=== PATIENT | female | born 1990 | race American Indian/Alaskan Native ===

== ENCOUNTER 2020-02-20 03:05 | Emergency (ER) | payer SELFPAY ==
[2020-02-20 04:24] LABS: Blood Urea Nitrogen 12 mg/dL (7-17); Calcium 8.8 mg/dL (8.4-10.2); Hemolysis Index 28
[2020-02-20 04:38] LABS: BUN/Creatinine Ratio 17
[2020-02-20 04:52] LABS: Basophils % (Auto) 0.2 % (0.0-1.8); Hematocrit 39.3 % (30.3-42.9); Hemoglobin 13.3 gm/dl (10.1-14.3); Lymphocytes # (Auto) 1.9 K/mm3 (1.2-5.4); Lymphocytes % (Auto) 18.4 % (13.4-35.0); Mean Corpuscular HGB Conc 34 % (30-34); Mean Corpuscular Volume 92 fl (79-97); Monocytes # (Auto) 0.8 K/mm3 (0.0-0.8); Platelet Count 233 K/mm3 (140-440); Red Blood Count 4.28 M/mm3 (3.65-5.03); Red Cell Distribution Width 13.1 % (13.2-15.2)
[2020-02-20] MEDS ORDERED: KETOROLAC 30 MG/1 ML INJ IV ONE (05:47)
[2020-02-20] MEDS ORDERED: SODIUM CHLORIDE 0.9% 1000 ML 1,000 ML IV ONE (05:47)
--- NOTE | 2020-02-20 05:58 | Emergency Department Report ---
ED General Adult HPI - General Chief complaint: Dental/Oral Stated complaint: SWOLLEN TONSIL,ABCESS,HIGH GLUCOSE Source: patient Mode of arrival: Stretcher Limitations: No Limitations - History of Present Illness Initial comments: Patient is a 29-year-old female who presents for recurrent tonsillitis. last CT neck for evaluation 2 days ago. and will follow-up with ENT. Pt is requesting for referral to different ENT as she does not trust the current one. There are no new problems or concerns. pain today is 06/26/ there is no whee to o - Related Data Previous Rx's Medication Instructions Recorded Last Taken Type Clindamycin [Clindamycin CAP] 300 mg PO Q6H 10 Days #40 capsule 02/20/20 Unknown Rx Ibuprofen [Motrin 800 MG tab] 800 mg PO Q8HR PRN #30 tablet 02/20/20 Unknown Rx dexAMETHasone [Decadron] 4 mg PO BID 3 Days #6 tablet 02/20/20 Unknown Rx Allergies Allergy/AdvReac Type Severity Reaction Status Date / Time No Known Allergies Allergy Unverified 02/20/20 03:45 ED Review of Systems ROS: Stated complaint: SWOLLEN TONSIL,ABCESS,HIGH GLUCOSE Other details as noted in HPI Constitutional: denies: chills, fever Eyes: denies: eye pain, eye discharge, vision change ENT: dental pain. denies: ear pain, throat pain, hearing loss, congestion Respiratory: denies: cough, shortness of breath, wheezing Cardiovascular: denies: chest pain, palpitations Endocrine: no symptoms reported Gastrointestinal: denies: abdominal pain, nausea, diarrhea Genitourinary: denies: urgency, dysuria, discharge Musculoskeletal: denies: back pain, joint swelling, arthralgia Skin: denies: rash, lesions Neurological: as per HPI. denies: headache, weakness, numbness, paresthesias, confusion, vertigo Psychiatric: denies: anxiety, depression Hematological/Lymphatic: denies: easy bleeding, easy bruising ED Past Medical Hx - Past Medical History Previous Medical History?: Yes Hx Diabetes: Yes - Surgical History Past Surgical History?: No - Social History Smoking Status: Never Smoker Substance Use Type: None - Medications Home Medications: Home Medications Medication Instructions Recorded Confirmed Last Taken Type Clindamycin [Clindamycin CAP] 300 mg PO Q6H 10 Days #40 capsule 02/20/20 Unknown Rx Ibuprofen [Motrin 800 MG tab] 800 mg PO Q8HR PRN #30 tablet 02/20/20 Unknown Rx dexAMETHasone [Decadron] 4 mg PO BID 3 Days #6 tablet 02/20/20 Unknown Rx ED Physical Exam - General Limitations: No Limitations General appearance: alert, in no apparent distress - Head Head exam: Present: atraumatic, normocephalic - Eye Eye exam: Present: normal appearance, PERRL, EOMI - ENT ENT exam: Present: mucous membranes moist, TM's normal bilaterally, normal external ear exam - Expanded ENT Exam Expanded Ear exam: Present: normal external inspection Mouth exam: Present: normal external inspection, tongue normal, tongue elevation. Absent: trismus Throat exam: Positive: tonsillar erythema, tonsillomegaly, tonsillar exudate. Negative: R peritonsillar mass, L peritonsillar mass - Neck Neck exam: Present: normal inspection, tenderness, full ROM, lymphadenopathy - Respiratory Respiratory exam: Present: normal lung sounds bilaterally. Absent: respiratory distress, wheezes, stridor, chest wall tenderness - Cardiovascular Cardiovascular Exam: Present: regular rate, normal rhythm. Absent: systolic murmur, diastolic murmur, rubs, gallop - GI/Abdominal GI/Abdominal exam: Present: soft, distended, rebound. Absent: pulsatile mass, hernia - Rectal Rectal exam: Present: deferred - Extremities Exam Extremities exam: Present: normal inspection - Back Exam Back exam: Present: normal inspection, full ROM, paraspinal tenderness. Absent: tenderness, CVA tenderness (R), CVA tenderness (L) - Neurological Exam Neurological exam: Present: alert, oriented X3, CN II-XII intact, normal gait, reflexes normal - Psychiatric Psychiatric exam: Present: normal affect, normal mood - Skin Skin exam: Present: warm, dry, intact, normal color. Absent: rash ED Course Vital Signs 02/20/20 03:21 Temperature 98.1 F Pulse Rate 97 H Respiratory 18 Rate Blood Pressure 153/92 O2 Sat by Pulse 98 Oximetry ED Medical Decision Making - Lab Data Result diagrams: 02/20/20 03:50 02/20/20 03:50 - Medical Decision Making Patient diagnosed with chronic tonsillitis was admitted at [facility] for same ENT consult with Dr. Vasquez, patient states she want second opinion from different ENT, states symptoms for the past 1-1/2 months, states treatment was with Augmentin and prednisone at [facility] [place]. Plan: continue met formin as prescribed, Change antibiotic to clindamycin , first dose of IV piggyback in ED today, Ronda , refer to Dr. POWELL ENT, Critical care attestation.: If time is entered above; I have spent that time in minutes in the direct care of this critically ill patient, excluding procedure time. ED Disposition Clinical Impression: Pharyngitis Qualifiers: Pharyngitis/tonsillitis etiology: unspecified etiology Qualified Code(s): J02.9 - Acute pharyngitis, unspecified Disposition: TO HOME OR SELFCARE Is pt being admited?: No Does the pt Need Aspirin: No Condition: Stable Instructions: Pharyngitis Prescriptions: Clindamycin [Clindamycin CAP] 300 mg PO Q6H 10 Days #40 capsule dexAMETHasone [Decadron] 4 mg PO BID 3 Days #6 tablet Ibuprofen [Motrin 800 MG tab] 800 mg PO Q8HR PRN #30 tablet PRN Reason: pain Referrals: ASHWINI POWELL MD [Staff Physician] - 3-5 Days Forms: Work/School Release Form(ED) Time of Disposition: 07:21
[2020-02-20] MEDS ORDERED: INSULIN REGULAR, HUMAN 100 UNIT/ML 3ML VIAL IV ONE (06:04)
[2020-02-20] MEDS ORDERED: dexAMETHasone 20 MG/5 ML VIAL IV ONE (06:04)
[2020-02-20] MEDS ORDERED: INSULIN REGULAR, HUMAN 100 UNITS/1 ML ONE (08:00)
[2020-02-20 08:34] VITALS: BP 138/80
== END 2020-02-20 09:00 | disposition home or self-care (01) ==
LOC: ED 03:05
DX: J02.9 Acute pharyngitis, unspecified (principal); E11.65 Type 2 diabetes mellitus with hyperglycemia; Z79.899 Other long term (current) drug therapy
CPT/HCPCS: 36415; 80048; 82962; 84703; 85025; 96365; 96375; 99284; J1885; J7030; J1815

== ENCOUNTER 2020-12-02 00:33 | Emergency (ER) | payer SELFPAY ==
--- NOTE | 2020-12-02 01:15 | Event Note ---
ED Screening Note Date of service: 12/02/20 Time: 01:12 ED Screening Note: 30-year-old female patient with history of diabetes presents to the emergency department with complaints of right-sided chest pain, cough, and shortness of breath starting 2 days ago. Prior to the onset of her symptoms, she was evaluated at another emergency department for headache and nausea. She was diagnosed with urinary tract infection and started on Ciprofloxacin. Current symptoms began immediately after she was discharged home from the emergency department. Chest pain is exacerbated with coughing and deep inhalation. Chest pain is relieved with lying in the right lateral decubitus position. Patient tested negative for COVID-19 just prior to the onset of her symptoms. Patient does not use insulin. Tachycardic in triage. General: Awake, appropriately interactive. Appears uncomfortable. Neck: Supple. Full range of motion intact. Cardiovascular: Tachycardic. Normal peripheral perfusion. Pulmonary: No respiratory distress. Patient is speaking normally without use of accessory muscles. Skin: No apparent rashes or lesions. Neurological: No facial asymmetry. Speech is clear. Follows commands. Patient is alert and oriented. Musculoskeletal: Moves all four extremities spontaneously with normal range of motion. Psych: Cooperative. Appropriate mood and affect. EKG, labs, chest x-ray ordered. bus monitor, continuous pulse oximetry, peripheral IV access requested. Triage nurse aware. Decision to pursue PE work-up deferred to additional ED providers following further history and complete physical exam. I have greeted and performed a focused rapid initial assessment of this patient. A comprehensive ED assessment and evaluation of the patient, analysis of all test results, and completion of the medical decision-making process will be conducted by additional ED providers. This initial assessment/diagnostic orders/clinical plan/treatment(s) is/are subject to change based on patients health status, clinical progression and re-assessment. Further treatment and workup at subsequent clinical provider's discretion. Patient/guardian urged not to elope from the ED as their condition may be serious if not clinically assessed and managed.
--- NOTE | 2020-12-02 01:42 | Emergency Department Report ---
ED Chest Pain HPI - General Chief Complaint: Chest Pain Stated Complaint: KATHERYN PUI?: No Time Seen by Provider: 12/02/20 01:38 Source: patient Mode of arrival: Ambulatory Limitations: No Limitations - History of Present Illness Initial Comments: Patient is a 30-year-old female who presents emergency room with complaint of cough, shortness of breath, right-sided chest pain. Patient states her symptoms are severe. Patient states her symptoms are worsening. Patient states that her shortness of breath is better with rest and worse with movement and exertion. Patient states that her chest pain is better with rest and palpation. Patient denies fever and chills. Patient states he has not been tested just prior to her symptoms starting and her COVID-19 test was negative. Patient denies recent travel. Patient denies recent international travel. Patient denies exposure to the novel coronavirus. Patient denies sick contacts. Patient denies fever and chills. Patient denies loss of smell.. Patient denies diarrhea. Patient denies coming in contact with anybody with symptoms of the novel coronavirus. MD Complaint: chest pain -: Sudden, days(s) Onset: during rest Pain Location: right chest Severity: severe Severity scale (0 -10): 10 Quality: sharp Consistency: constant Improves With: rest Worsens With: palpation, movement re: dyspnea. denies: nausea, vomting, diaphoresis, sense of impending doom Other Symptoms: cough. denies: fever, syncope, rash, acid taste in mouth, leg swelling, palpitations, burping Treatments Prior to Arrival: none Aspirin use within the Past 7 Days: (0) No - Related Data On Oral Contraceptives: No Previous Rx's Medication Instructions Recorded Last Taken Type Clindamycin [Clindamycin CAP] 300 mg PO Q6H 10 Days #40 capsule 02/20/20 Unknown Rx Ibuprofen [Motrin 800 MG tab] 800 mg PO Q8HR PRN #30 tablet 02/20/20 Unknown Rx dexAMETHasone [Decadron] 4 mg PO BID 3 Days #6 tablet 02/20/20 Unknown Rx oxyCODONE /ACETAMINOPHEN [Percocet 1 tab PO Q4HR PRN #20 tab 12/02/20 Unknown Rx 5/325] Allergies Allergy/AdvReac Type Severity Reaction Status Date / Time No Known Allergies Allergy Unverified 02/20/20 03:45 Heart Score - HEART Score History: Slightly suspicious EKG: Normal Age: < 45 Risk factors: 1-2 risk factors Troponin: < normal limit HEART Score: 1 - EKG Read Time Time EKG Completed: : EKG Read Time: 01:26 ED Review of Systems ROS: Stated complaint: KATHERYN Other details as noted in HPI Constitutional: denies: chills, fever Eyes: denies: eye pain, eye discharge, vision change ENT: denies: ear pain, throat pain Respiratory: see HPI, cough, shortness of breath. denies: wheezing Cardiovascular: chest pain. denies: palpitations Endocrine: no symptoms reported Gastrointestinal: denies: abdominal pain, nausea, diarrhea Genitourinary: denies: urgency, dysuria, discharge Musculoskeletal: denies: back pain, joint swelling, arthralgia Skin: denies: rash, lesions Neurological: denies: headache, weakness, paresthesias Psychiatric: denies: anxiety, depression Hematological/Lymphatic: denies: easy bleeding, easy bruising ED Past Medical Hx - Past Medical History Previous Medical History?: Yes Hx Diabetes: Yes - Surgical History Past Surgical History?: No - Family History Family history: no significant - Social History Smoking Status: Never Smoker Substance Use Type: None - Medications Home Medications: Home Medications Medication Instructions Recorded Confirmed Last Taken Type Clindamycin [Clindamycin CAP] 300 mg PO Q6H 10 Days #40 capsule 02/20/20 Unknown Rx Ibuprofen [Motrin 800 MG tab] 800 mg PO Q8HR PRN #30 tablet 02/20/20 Unknown Rx dexAMETHasone [Decadron] 4 mg PO BID 3 Days #6 tablet 02/20/20 Unknown Rx oxyCODONE /ACETAMINOPHEN [Percocet 1 tab PO Q4HR PRN #20 tab 12/02/20 Unknown Rx 5/325] ED Physical Exam - General Limitations: No Limitations General appearance: alert, in no apparent distress - Head Head exam: Present: atraumatic, normocephalic - Eye Eye exam: Present: normal appearance - ENT ENT exam: Present: mucous membranes moist - Neck Neck exam: Present: normal inspection - Respiratory Respiratory exam: Present: normal lung sounds bilaterally, chest wall tenderness. Absent: respiratory distress, wheezes, rales - Cardiovascular Cardiovascular Exam: Present: regular rate, normal rhythm. Absent: systolic mur mur, diastolic murmur, rubs, gallop - GI/Abdominal GI/Abdominal exam: Present: soft, normal bowel sounds - Extremities Exam Extremities exam: Present: normal inspection - Back Exam Back exam: Present: normal inspection - Neurological Exam Neurological exam: Present: alert, oriented X3 - Psychiatric Psychiatric exam: Present: normal affect, normal mood - Skin Skin exam: Present: warm, dry, intact, normal color. Absent: rash ED Course Vital Signs 12/02/20 12/02/20 12/02/20 00:44 02:11 02:16 Temperature 99.7 F H Pulse Rate 119 H 112 H 114 H Respiratory 18 14 27 H Rate Blood Pressure 124/78 O2 Sat by Pulse 100 100 100 Oximetry 12/02/20 12/02/20 12/02/20 02:30 02:46 03:00 Temperature Pulse Rate 110 H 113 H 118 H Respiratory 15 16 15 Rate Blood Pressure 131/85 131/85 131/85 O2 Sat by Pulse 100 98 100 Oximetry 12/02/20 12/02/20 12/02/20 03:16 03:30 03:46 Temperature Pulse Rate 112 H 109 H 118 H Respiratory 21 25 H 24 Rate Blood Pressure 131/85 148/100 131/85 O2 Sat by Pulse 99 100 99 Oximetry 12/02/20 12/02/20 12/02/20 04:00 04:16 04:30 Temperature Pulse Rate 119 H 119 H 115 H Respiratory 41 H 34 H 29 H Rate Blood Pressure 134/81 134/81 135/78 O2 Sat by Pulse 99 100 100 Oximetry 12/02/20 12/02/20 05:04 05:16 Temperature Pulse Rate 112 H 110 H Respiratory 20 16 Rate Blood Pressure 119/78 O2 Sat by Pulse 100 100 Oximetry - Reevaluation(s) Reevaluation #1: Patient states her pain is better. 12/02/20 04:00 Reevaluation #2: Patient states she is feeling better. Patient states that her pain has improved. I discussed all results and clinical findings with patient. I discussed plan of care with patient. Patient agrees with plan of care. Patient is stable for discharge. Patient will be discharged home. Patient given discharge instructions. Patient voiced understanding of discharge instructions. 12/02/20 05:41 MAC score - Mac Score Age > 65: (0) No Aspirin use within the Past 7 Days: (0) No 3 or more CAD Risk Factors: (0) No 2 or more Angina events in past 24 hrs: (0) No Known CAD with more than 50% Stenosis: (0) No Elevated Cardiac Markers: (0) No ST Deviation Greater than 0.5mm: (0) No MAC Score: 0 ED Medical Decision Making - Lab Data Result diagrams: 12/02/20 01:50 12/02/20 01:50 - EKG Data -: EKG Interpreted by Sc EKG shows normal: sinus rhythm, axis, intervals, QRS complexes, ST-T waves Rate: tachycardia - Radiology Data Radiology results: report reviewed, image reviewed CHEST 2 VIEWS INDICATION / CLINICAL INFORMATION: chest pain. COMPARISON: None available. FINDINGS: SUPPORT DEVICES: None. HEART / MEDIASTINUM: No significant abnormality. LUNGS / PLEURA: No significant pulmonary or pleural abnormality. No pneumothorax. ADDITIONAL FINDINGS: No significant additional findings. IMPRESSION: 1. No acute findings. CTA CHEST WITH CONTRAST INDICATION / CLINICAL INFORMATION: Chest pain with S.O.B., Tachycardia, elevated D-dimer. TECHNIQUE: Axial CT images were obtained through the chest after injection of IV contrast. 3 plane MIP and/or 3D reconstructions were produced. All CT scans at this location are performed using CT dose reduction for ALARA by means of automated exposure control. COMPARISON: None available. FINDINGS: Contrast bolus timing is suboptimal with more contrast in the aorta and heart. The central pulmonary arteries are patent and visualized peripheral pulmonary arteries are patent. No definite PTE is seen. There is a rounded nodular density within the right lung measures 4.5 cm. There is questionable fat within the lesion. Additional nodular lesion within the right lower lung with possible small amount of gas within the lesion measuring 1.2 cm additional smaller nodule measuring 5 mm. No pleural effusion is seen. Mild increased interstitial prominence within the lungs. There is a large mass within the right kidney measuring 5.9 x 4.6 cm. The mass appears aggressive. Small nodule left lower lung. IMPRESSION: 1. No central PTE is definitely seen. Visualized pulmonary arteries appear patent however contrast bolus timing is suboptimal 2. Multiple pulmonary nodules within the lungs. Largest nodule measures 4.5 cm however there may be some central airways are patent. Findings still concerning for metastatic disease given right renal lesion. PET/CT examination may be helpful for further evaluation 3. Large mass within the right kidney measures 5.9 x 4.6 cm concerning for renal cell carcinoma. - Medical Decision Making Patient is a 30-year-old female who presents emergency room with shortness of breath, cough and chest pain. Patient's chest pain is reproducible on exam. Patient had a chest x-ray which was negative for acute findings. Patient had labs done which were essentially unremarkable except for hyperglycemia. Patient's hyperglycemia is treated with insulin, fluids. Patient was given Toradol for the chest pain and responded well. Patient had a D-dimer which was elevated and the patient had a follow-up CTA of the chest. Patient CT of the chest shows no PE but shows multiple lung nodules and a renal cell mass consistent with renal cell carcinoma. Patient's blood sugar was rechecked and it was 230. Patient's blood sugars were acceptable to be discharged. Patient responded well to treatment. Patient did not require any further emergency medical services. Patient does not require inpatient services. Patient stable for discharge. Patient discharged home. I discussed all results and clinical findings with patient. I discussed plan of care with patient. Patient agrees with plan of care. Patient is stable for discharge. Patient will be discharged home. Patient given discharge instructions. Patient voiced understanding of discharge instructions. - Differential Diagnosis Chest pain, PE, bronchitis, pneumonitis, pleurisy, shortness of breath, cou Critical care attestation.: If time is entered above; I have spent that time in minutes in the direct care of this critically ill patient, excluding procedure time. ED Disposition Clinical Impression: Right-sided chest pain, Cough, SOB (shortness of breath), Renal mass, Lung mass, Hyperglycemia Chest pain Qualifiers: Chest pain type: unspecified Qualified Code(s): R07.9 - Chest pain, unspecified Disposition: 01 HOME / SELF CARE / HOMELESS Is pt being admited?: No Does the pt Need Aspirin: No Condition: Stable Instructions: Nonspecific Chest Pain, Adult, Chest Wall Pain, [id number], Cough, Adult, Shortness of Breath, Adult, [id number], Renal Mass Additional Instructions: Patient to follow-up with primary care in 2 to 3 days. Patient to follow-up with grey roll man, certified bench jeweler technician, urologist in 2 to 3 days. Patient to rest. Patient to increase water. Patient to take Tylenol or ibuprofen as needed for pain. Patient to take meds as directed. Patient to return to the ER if condition worsens, changes or new symptoms arise. Prescriptions: oxyCODONE /ACETAMINOPHEN [Percocet 5/325] 1 tab PO Q4HR PRN #20 tab PRN Reason: Pain , Severe (7-10) Referrals: ELIZABETH MOSELEY MD [Primary Care Provider] - 2-3 Days JAGDEEP TELLEZ MD [Referring] - 2-3 Days EL MORRELL MD [Staff Physician] - 2-3 Days MARVIN BURROUGHS MD [Staff Physician] - 2-3 Days BRENDON STRANGE MD [Staff Physician] - 2-3 Days Time of Disposition: 06:07
[2020-12-02 02:19] LABS: Basophils % (Auto) 0.4 % (0.0-1.8); Eosinophils % (Auto) 0.3 % (0.0-4.3); Hematocrit 30.5 % (30.3-42.9); Hemoglobin 10.4 gm/dl (10.1-14.3); Lymphocytes # (Auto) 0.8 K/mm3 (1.2-5.4); Lymphocytes % (Auto) 7.2 % (13.4-35.0); Mean Corpuscular HGB Conc 34 % (30-34); Mean Corpuscular Volume 88 fl (79-97); Monocytes # (Auto) 1.4 K/mm3 (0.0-0.8); Monocytes % (Auto) 12.4 % (0.0-7.3); Platelet Count 273 K/mm3 (140-440); Red Blood Count 3.48 M/mm3 (3.65-5.03); Red Cell Distribution Width 13.5 % (13.2-15.2)
[2020-12-02 02:34] LABS: Alanine Aminotransferase 67 units/L (7-56); Albumin 2.7 g/dL (3.9-5); BUN/Creatinine Ratio 10; Blood Urea Nitrogen 8 mg/dL (7-17); Calcium 9.6 mg/dL (8.4-10.2); Hemolysis Index 0
--- NOTE | 2020-12-02 02:53 | XRay Report ---
CHEST 2 VIEWS INDICATION / CLINICAL INFORMATION: chest pain. COMPARISON: None available. FINDINGS: SUPPORT DEVICES: None. HEART / MEDIASTINUM: No significant abnormality. LUNGS / PLEURA: No significant pulmonary or pleural abnormality. No pneumothorax. ADDITIONAL FINDINGS: No significant additional findings. IMPRESSION: 1. No acute findings. Signer Name: Rey Garcia MD Signed: 12/02/2020 2:49 AM Workstation Name: [id number]
[2020-12-02] MEDS ORDERED: KETOROLAC 30 MG/1 ML INJ IV ONE (03:28)
[2020-12-02] MEDS ORDERED: INSULIN REGULAR, HUMAN 100 UNITS/1 ML IV ONE (03:28)
[2020-12-02] MEDS ORDERED: SODIUM CHLORIDE 0.9% 1000 ML 1,000 ML IV ONE (03:28)
--- NOTE | 2020-12-02 05:23 | Cat Scan Report ---
CTA CHEST WITH CONTRAST INDICATION / CLINICAL INFORMATION: Chest pain with S.O.B., Tachycardia, elevated D-dimer. TECHNIQUE: Axial CT images were obtained through the chest after injection of IV contrast. 3 plane [place] P and/or 3D reconstructions were produced. All CT scans at this location are performed using CT dose reduction for ALARA by means of automated exposure control. COMPARISON: None available. FINDINGS: Contrast bolus timing is suboptimal with more contrast in the aorta and heart. The central pulmonary arteries are patent and visualized peripheral pulmonary arteries are patent. No definite PTE is seen. There is a rounded nodular density within the right lung measures 4.5 cm. There is questionable fat within the lesion. Additional nodular lesion within the right lower lung with possible small amount o f gas within the lesion measuring 1.2 cm additional smaller nodule measuring 5 mm. No pleural effusio n is seen. Mild increased interstitial prominence within the lungs. There is a large mass within the right kidney measuring 5.9 x 4.6 cm. The mass appears aggressive. Small nodule left lower lung. IMPRESSION: 1. No central PTE is definitely seen. Visualized pulmonary arteries appear patent however contrast [place] timing is suboptimal 2. Multiple pulmonary nodules within the lungs. Largest nodule measures 4.5 cm however there may be s ome central airways are patent. Findings still concerning for metastatic disease given right renal le kamala. PET/CT examination may be helpful for further evaluation 3. Large mass within the right kidney measures 5.9 x 4.6 cm concerning for renal cell carcinoma. Signer Name: Rey Garcia MD Signed: 12/02/2020 5:18 AM Workstation Name: [id number]
[2020-12-02 06:21] VITALS: BP 137/87
--- NOTE | 2020-12-03 13:27 | Electrocardiograph Report ---
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
== END 2020-12-02 06:30 | disposition home or self-care (01) ==
LOC: ED 00:33
DX: R07.89 Other chest pain (principal); R05 Cough; R06.02 Shortness of breath; N28.89 Other specified disorders of kidney and ureter; R91.8 Other nonspecific abnormal finding of lung field; E11.9 Type 2 diabetes mellitus without complications
CPT/HCPCS: 36415; 71046; 71275; 80053; 82962; 83735; 84703; 85025; 85379; 93005; 96361; 96374; 96375; 99284; J1885; J7030; Q9967; J1815